=== PATIENT | female | born 1960 | race Native Hawaiian/Other Pacific Islander ===

== ENCOUNTER 2019-09-18 13:24 | Outpatient (CLI) | payer OTHER ==
[2019-09-18 14:41] LABS: PLATELET COUNT 210 K/uL (152-353)
[2019-09-18 14:58] LABS: POTASSIUM 3.3 mmol/L (3.6-5.2); SODIUM 137 mmol/L (136-145)
== END 2019-09-18 20:14 | disposition home or self-care (01) ==
LOC: LAB 13:24
PROVIDERS: Nurse Practitioner Family
DX: R55 Syncope and collapse (principal); R13.19 Other dysphagia; R53.83 Other fatigue; R41.82 Altered mental status, unspecified; R40.0 Somnolence
CPT/HCPCS: 80053; 82550; 82553; 82607; 82746; 83735; 84436; 84443; 84484; 85027; 85651; 86140; 87040

== ENCOUNTER 2019-09-20 11:22 | Outpatient (CLI) | payer OTHER | END 2019-09-20 19:54 | disposition home or self-care (01) | LOC: LAB 11:22 | DX: R30.0 Dysuria (principal) | CPT/HCPCS: 81000; 87088 ==